=== PATIENT | male | born 1950 | race Caucasian/White ===

== ENCOUNTER 2017-04-03 09:13 | Day surgery (SDC) | payer BC ==
[~2017-04-03 09:13] MED LIST: Metoclopramide 10 MG/2 ML SDV IV PRN; Sodium Chloride 0.9% 1,000 ML IV SCH; Sodium Chloride 0.9% 10 ML Syringe FLUSH PRN
[2017-04-03] MEDS ORDERED: Midazolam 1 MG/ML 5 ML SDV ONE (11:40)
[2017-04-03] MEDS ORDERED: Propofol 200 MG/20 ML SDV ONE (11:40)
--- NOTE | 2017-04-03 16:05 | OR ---
DATE OF OPERATION: 04/03/2017 PREOPERATIVE DIAGNOSIS: Screening colonoscopy. POSTOPERATIVE DIAGNOSIS: Screening colonoscopy. OPERATIVE PROCEDURE: Colonoscopy. ANESTHESIA: MAC. ESTIMATED BLOOD LOSS: None. COMPLICATIONS: None. INDICATION FOR THE PROCEDURE: The patient is a 66-year-old male, who has had 1 previous colonoscopy 10+ years ago, which was normal. The patient denies any change in bowel habits since that time. No family history. He is here today for screening colonoscopy. DESCRIPTION OF PROCEDURE: Informed consent was obtained from the patient. The patient was taken to the operating room, placed on table in left lateral decubitus position. Monitored anesthesia care was administered. On digital rectal exam, revealed no masses. Colonoscope was then advanced through the anus, directed toward the cecum. Cecum was identified by appendiceal orifice, visualizing the appendiceal orifice and ileocecal valve. Colonoscope was slowly withdrawn. No masses. No polyps. No areas of ischemia or inflammation. No AV malformations were identified. Retroflexion performed in the rectum was also unremarkable. Colonoscope was then withdrawn. The patient tolerated procedure well and was brought to recovery room in good condition. FINDINGS: Normal colonoscopy. RECOMMENDATIONS: Would recommend repeat screening colonoscopy in 10 years. SHEEBA/JANINA /[id number]
== END 2017-04-03 14:00 | disposition home or self-care (01) ==
LOC: LB.SDS 09:13
PROVIDERS: ATTEND Surgery
DX: Z12.11 Encounter for screening for malignant neoplasm of colon (principal); Z79.82 Long term (current) use of aspirin; Z79.899 Other long term (current) drug therapy
CPT/HCPCS: 45378; J2250; J2704; J7040